=== PATIENT | female | born 1945 | race Caucasian/White ===

== ENCOUNTER 2017-12-16 18:07 | Outpatient (REF) | payer MEDICARE, SELFPAY ==
[2017-12-16 19:54] LABS: ALT 39 U/L (12-78); AST 25 U/L (15-37); Albumin 3.7 g/dL (3.4-5.0); Alkaline Phosphatase 82 U/L (46-116); Anion Gap 8.8 mmol/L (3-11); BUN 11 mg/dL (7-18); Bilirubin, Total 0.2 mg/dL (0.2-1.0); CO2 27.2 mmol/L (21.0-32.0); CREATININE 1.07 mg/dL (0.55-1.02); Calcium 9.3 mg/dL (8.5-10.1); Chloride 103 mmol/L (98-107); Estimated GFR 50.84 (mL/min/1.73m2); Glucose 88 mg/dL (70-100); Potassium 4.3 mmol/L (3.5-5.1); Sodium 139 mmol/L (136-145); TSH 0.45 uIU/mL (0.358-3.74); Total Protein 7.1 g/dL (6.4-8.2)
== END 2017-12-16 18:27 ==
LOC: NCHCN 18:07
PROVIDERS: PCP Nurse Practitioner; Visit Provider Nurse Practitioner
DX: E03.9 Hypothyroidism, unspecified (principal); R03.0 Elevated blood-pressure reading, without diagnosis of hypertension
CPT/HCPCS: 80053; 84443

== ENCOUNTER 2019-10-05 12:04 | Outpatient (REF) | payer MEDICARE, SELFPAY ==
[2019-10-05 16:30] LABS: ALT 36 U/L (14-59); AST 21 U/L (15-37); Albumin 3.9 g/dL (3.4-5.0); Alkaline Phosphatase 87 U/L (46-116); Anion Gap 10.6 mmol/L (3-11); BUN 15 mg/dL (7-18); Bilirubin, Total 0.3 mg/dL (0.2-1.0); CO2 26.4 mmol/L (21.0-32.0); CREATININE 1.11 mg/dL (0.55-1.02); Calcium 9.3 mg/dL (8.5-10.1); Calculated LDL 204 mg/dL (<100); Chloride 103 mmol/L (98-107); Cholesterol 310 mg/dL (<200); Estimated GFR 48.46 (mL/min/1.73m2); Glucose 101 mg/dL (74-106); HDL Cholesterol 37 mg/dL (40-60); Potassium 4.7 mmol/L (3.5-5.1); Sodium 140 mmol/L (136-145); TSH (W/Ref FT4) 1.79 uIU/mL (0.36-3.74); Total Protein 7.6 g/dL (6.4-8.2); Triglyceride 347 mg/dL (<150)
== END 2019-10-05 12:24 ==
LOC: NCHCN 12:04
PROVIDERS: PCP Nurse Practitioner; Visit Provider Nurse Practitioner
DX: I10 Essential (primary) hypertension (principal); E78.5 Hyperlipidemia, unspecified; E03.9 Hypothyroidism, unspecified
CPT/HCPCS: 80053; 80061; 84443

== ENCOUNTER 2020-07-20 16:51 | Outpatient (REF) | payer MEDICARE, SELFPAY ==
[2020-07-20 16:47] LABS: ALT 31 U/L (14-59); AST 19 U/L (15-37); Albumin 3.9 g/dL (3.4-5.0); Alkaline Phosphatase 107 U/L (46-116); Anion Gap 11.3 mmol/L (3-11); BUN 18 mg/dL (7-18); Bilirubin, Total 0.3 mg/dL (0.2-1.0); CO2 25.7 mmol/L (21.0-32.0); Calcium 9.4 mg/dL (8.5-10.1); Chloride 105 mmol/L (98-107); Cholesterol 269 mg/dL (<200); Glucose 93 mg/dL (74-106); Magnesium 2.2 mg/dL (1.8-2.4); Potassium 4.5 mmol/L (3.5-5.1); Sodium 142 mmol/L (136-145); TSH (W/Ref FT4) 6.22 uIU/mL (0.36-3.74); Total Protein 7.9 g/dL (6.4-8.2); Triglyceride 305 mg/dL (<150)
[2020-07-20 17:02] LABS: Calculated LDL 168 mg/dL (<100); HDL Cholesterol 40 mg/dL (40-60)
[2020-07-20 17:20] LABS: FREE T4 1.13 ng/dL (0.76-1.46)
== END 2020-07-20 16:52 | disposition home or self-care (01) ==
LOC: NCHCN 16:51
PROVIDERS: PCP Nurse Practitioner; Visit Provider Nurse Practitioner Family
DX: E78.5 Hyperlipidemia, unspecified (principal); I10 Essential (primary) hypertension; E03.9 Hypothyroidism, unspecified; Z79.899 Other long term (current) drug therapy
CPT/HCPCS: 80053; 80061; 82306; 83735; 84439; 84443

== ENCOUNTER 2020-08-31 20:22 | Outpatient (REF) | payer MEDICARE, SELFPAY ==
[2020-08-31 16:16] LABS: TSH (W/Ref FT4) 1.12 uIU/mL (0.36-3.74)
== END 2020-08-31 20:23 | disposition home or self-care (01) ==
LOC: NCHCN 20:22
PROVIDERS: PCP Nurse Practitioner; Visit Provider Nurse Practitioner Family
DX: E03.9 Hypothyroidism, unspecified (principal)
CPT/HCPCS: 84443

== ENCOUNTER 2021-07-17 15:10 | Outpatient (REF) | payer MEDICARE, SELFPAY ==
[2021-07-17 15:54] LABS: Anion Gap 12.1 mmol/L (3-11); BUN 18 mg/dL (7-18); CO2 23.9 mmol/L (21.0-32.0); Chloride 102 mmol/L (98-107); Estimated GFR 54.35 (mL/min/1.73m2); Glucose 137 mg/dL (74-106); Potassium 4.6 mmol/L (3.5-5.1); Sodium 138 mmol/L (136-145); TSH 1.37 uIU/mL (0.36-3.74)
== END 2021-07-17 15:11 | disposition home or self-care (01) ==
LOC: NCHCN 15:10
PROVIDERS: PCP Nurse Practitioner; Visit Provider Nurse Practitioner Family
DX: E03.9 Hypothyroidism, unspecified (principal)
CPT/HCPCS: 80048; 84443

== ENCOUNTER 2022-01-14 11:43 | Outpatient (REF) | payer MEDICARE, SELFPAY ==
[2022-01-14 16:29] LABS: TSH 0.65 uIU/mL (0.36-3.74)
== END 2022-01-14 11:44 | disposition home or self-care (01) ==
LOC: NCHCN 11:43
PROVIDERS: PCP Nurse Practitioner; Visit Provider Nurse Practitioner Family
DX: E03.9 Hypothyroidism, unspecified (principal)
CPT/HCPCS: 84443

== ENCOUNTER 2022-07-24 19:43 | Outpatient (REF) | payer MEDICARE, SELFPAY ==
[2022-07-24 21:39] LABS: Abs Immature Grans 0.05 10^3/uL (0.0-0.06); Absolute Basophil Count 0.06 10^3/uL (0.0-0.2); Absolute Eosinophil Count 0.11 10^3/uL (0.0-0.7); Absolute Lymphocyte Count 2.49 10^3/uL (1.2-3.4); Absolute Monocyte Count 0.77 10^3/uL (0.1-0.8); Absolute Neutrophil Count 3.97 10^3/uL (1.2-6.7); Basophils % 0.8; Eosinophils % 1.5; HCT 40.4 % (36.0-46.0); HGB 13.3 g/dL (11.2-15.7); Immature Grans % 0.7; Lymphocytes % 33.4; MCHC 32.9 % (32.0-36.0); MCV 94 fL (80-95); MPV 10.7 fL (8.0-11.0); Monocytes % 10.3; Neutrophils % 53.3; Platelet Count 355 10^3/uL (130-400); RBC 4.29 10^6/uL (3.93-5.22); RDW 12.5 % (11.7-14.6); RDW-SD 43.6 fL; WBC 7.45 10^3/uL (4.4-10.8)
[2022-07-24 22:42] LABS: ALT 34 U/L (14-59); AST 24 U/L (15-37); Albumin 4.1 g/dL (3.4-5.0); Alkaline Phosphatase 104 U/L (46-116); Anion Gap 10.8 mmol/L (3-11); BUN 18 mg/dL (7-18); Bilirubin, Total 0.3 mg/dL (0.2-1.0); CO2 25.2 mmol/L (21.0-32.0); CREATININE 1.1 mg/dL (0.55-1.02); Calcium 9.3 mg/dL (8.5-10.1); Chloride 101 mmol/L (98-107); Estimated GFR 52.73 (mL/min/1.73m2); Glucose 201 mg/dL (74-106); Potassium 4.5 mmol/L (3.5-5.1); Sodium 137 mmol/L (136-145); TSH (W/Ref FT4) 5.76 uIU/mL (0.36-3.74); Total Protein 8.3 g/dL (6.4-8.2); Vitamin B12 311 pg/mL (193-986)
[2022-07-24 22:59] LABS: FREE T4 1.13 ng/dL (0.76-1.46)
== END 2022-07-24 19:44 | disposition home or self-care (01) ==
LOC: NCHCN 19:43
PROVIDERS: PCP Nurse Practitioner; Visit Provider Nurse Practitioner Family
DX: E03.9 Hypothyroidism, unspecified (principal); E78.5 Hyperlipidemia, unspecified; I10 Essential (primary) hypertension; N18.31 Chronic kidney disease, stage 3a; R42 Dizziness and giddiness; Z79.899 Other long term (current) drug therapy
CPT/HCPCS: 80053; 82607; 84439; 84443; 85025

== ENCOUNTER 2022-09-11 12:58 | Outpatient (REF) | payer MEDICARE, SELFPAY ==
[2022-09-11 15:43] LABS: Hemoglobin A1C 6.4 % (<5.7)
== END 2022-09-11 12:59 | disposition home or self-care (01) ==
LOC: NCHCN 12:58
PROVIDERS: PCP Nurse Practitioner; Visit Provider Nurse Practitioner Family
DX: R73.9 Hyperglycemia, unspecified (principal)
CPT/HCPCS: 83036

== ENCOUNTER 2022-12-18 16:34 | Outpatient (REF) | payer MEDICARE, SELFPAY ==
[2022-12-18 16:43] LABS: HGB 13.2 g/dL (11.2-15.7); MCH 31.4 pg (27.0-33.0); MCV 95 fL (80-95); MPV 10.9 fL (8.0-11.0); Platelet Count 320 10^3/uL (130-400); RBC 4.21 10^6/uL (3.93-5.22); RDW 12.4 % (11.7-14.6); RDW-SD 43.2 fL; WBC 6.88 10^3/uL (4.4-10.8)
[2022-12-18 17:27] LABS: Iron 119 ug/dL (50-170); Total Iron Binding Capacity 358 ug/dL (250-450); Transferrin Sat 33 % (15-50)
[2022-12-18 17:32] LABS: TSH (W/Ref FT4) 2.51 uIU/mL (0.36-3.74); Vitamin B12 422 pg/mL (193-986)
[2022-12-18 18:38] LABS: Vitamin D 25 Total 47.6 ng/mL (30-100)
== END 2022-12-18 16:35 | disposition home or self-care (01) ==
LOC: NCHCN 16:34
PROVIDERS: PCP Nurse Practitioner; Visit Provider Nurse Practitioner Family
DX: E03.9 Hypothyroidism, unspecified (principal); R73.03 Prediabetes; R53.83 Other fatigue; F41.8 Other specified anxiety disorders; N18.31 Chronic kidney disease, stage 3a; I10 Essential (primary) hypertension; Z79.899 Other long term (current) drug therapy; R79.89 Other specified abnormal findings of blood chemistry
CPT/HCPCS: 82306; 85027; 82607; 83540; 83550; 84443

== ENCOUNTER 2024-03-05 10:38 | Outpatient (REF) | payer MEDICARE, SELFPAY ==
[2024-03-05 15:15] LABS: TSH (W/Ref FT4) 4.02 uIU/mL (0.36-3.74)
[2024-03-05 16:02] LABS: FREE T4 0.94 ng/dL (0.76-1.46)
== END 2024-03-05 10:39 | disposition home or self-care (01) ==
LOC: NCHCN 10:38
PROVIDERS: PCP Nurse Practitioner Family; Visit Provider Nurse Practitioner Family
DX: E03.9 Hypothyroidism, unspecified (principal)
CPT/HCPCS: 84439; 84443

== ENCOUNTER 2024-03-31 11:42 | Outpatient (REF) | payer MEDICARE, MEDICAID, SELFPAY ==
[2024-03-31 15:01] LABS: HCT 39.7 % (36.0-46.0); HGB 13.1 g/dL (11.2-15.7); MCH 31.6 pg (27.0-33.0); MCV 96 fL (80-95); Platelet Count 305 10^3/uL (130-400); RBC 4.14 10^6/uL (3.93-5.22); RDW 12.3 % (11.7-14.6); RDW-SD 43.1 fL; WBC 7.24 10^3/uL (4.4-10.8)
[2024-03-31 15:17] LABS: Hemoglobin A1C 6.3 % (<5.7)
[2024-03-31 15:23] LABS: ALT 23 U/L (14-59); AST 19 U/L (15-37); Albumin 4.1 g/dL (3.4-5.0); Alkaline Phosphatase 82 U/L (46-116); Anion Gap 8.5 mmol/L (3-11); BUN 19 mg/dL (7-18); Bilirubin, Total 0.35 mg/dL (0.2-1.0); CO2 27.5 mmol/L (21.0-32.0); CREATININE 1.1 mg/dL (0.55-1.02); Calcium 9.7 mg/dL (8.5-10.1); Chloride 102 mmol/L (98-107); Estimated GFR 52.08 (mL/min/1.73m2); Glucose 86 mg/dL (74-106); Potassium 4.7 mmol/L (3.5-5.1); Sodium 138 mmol/L (136-145)
== END 2024-03-31 11:43 | disposition home or self-care (01) ==
LOC: NCHCN 11:42
PROVIDERS: PCP Nurse Practitioner Family; Visit Provider Nurse Practitioner Family
DX: R73.03 Prediabetes (principal)
CPT/HCPCS: 80053; 85027; 83036

== ENCOUNTER 2024-07-23 11:11 | Outpatient (REF) | payer MEDICARE, MEDICAID, SELFPAY ==
[2024-07-23 15:34] LABS: FREE T4 1.04 ng/dL (0.76-1.46); TSH 0.74 uIU/mL (0.36-3.74)
== END 2024-07-23 11:12 | disposition home or self-care (01) ==
LOC: NCHCN 11:11
PROVIDERS: PCP Nurse Practitioner Family; Visit Provider Student in an Organized Health Care Education/Training Program
DX: E03.9 Hypothyroidism, unspecified (principal)
CPT/HCPCS: 84439; 84443

== ENCOUNTER 2024-09-16 10:03 | Emergency (ER) | payer MEDICARE, MEDICAID, SELFPAY ==
--- NOTE | 2024-09-16 10:15 | DI.RAD_ITS ---
Exam(s) XR KNEE LT 3V AP,LAT,MIRNA EXAM: XR KNEE LT 3V AP,LAT,MIRNA CLINICAL HISTORY: L knee/hip pain. TECHNIQUE: 2D digital imaging was performed of the left knee. Three images were obtained. AP, late ral and PA tunnel views were obtained. COMPARISON: No exams were available for comparison FINDINGS: BONES: No acute fracture is present. No bony destructive lesion is seen. JOINTS: There is marked narrowing of the medial femoral tibial joint. There osteophytes seen in all 3 joint compartments. No joint effusion is seen. No loose body. SOFT TISSUE: Normal. IMPRESSION: 1. No acute fracture or dislocation. 2. Marked osteoarthritis of the left knee. DATA REPOSITORY: RADIATION DOSE DELIVERED:
--- NOTE | 2024-09-16 10:15 | DI.RAD_ITS ---
Exam(s) XR HIP LT COMPLETE AP PELVIS EXAM: XR HIP LT COMPLETE AP PELVIS CLINICAL HISTORY: L knee/hip pain. TECHNIQUE: 2D digital imaging was performed of the left hip. Two views were obtained. AP pelvis an d lateral left hip views were obtained. COMPARISON: No exams were available for comparison FINDINGS: BONES: No acute fracture is present. No bony destructive lesion is seen. JOINTS: No dislocation present. The left hip is well maintained. The sacroiliac joints and symphysis pubis are unremarkable. SOFT TISSUE: Normal. IMPRESSION: No acute abnormality. DATA REPOSITORY: RADIATION DOSE DELIVERED:
[2024-09-16 10:17] VITALS: BP 181/94; PULSE 81; RESP 20; TEMP 36.7; O2SAT 94
--- NOTE | 2024-09-16 10:30 | ED.GENADUL_ITS ---
Discharge Plan Disposition Patient Disposition: Home Condition: Stable Discharge Details Clinical Impression: Strain of left quadriceps Primary Care Provider: COLLEEN LITTLE ED Provider: Asher Del Rio Home Meds and New Rx's Prescriptions: No Action levothyroxine [Euthyrox] 112 mcg tablet 112 mcg PO DAILY Discharge Instructions Instructions: Leg Muscle Strain ED Additional Instructions: You were seen in the emergency department for the pain in your left quadriceps muscle, there is palpable tension in the muscle body, you have known arthritis in the left knee which is quite severe on x-ray, the x-ray of your hip shows no severe arthritis, please take Tylenol and ibuprofen, apply topical Voltaren/diclofenac gel to the muscle pain, perform gentle stretching, some mas gilbert therapy visits may help with the pain, please follow-up with orthopedics for persistent pain lasting longer than 2 weeks. Please return to the emergency department for skin changes signs of neurovascular compromise/swelling distal to the knee, or any other emergent concerns. Referrals: [facility] [Provider Group] COLLEEN LITTLE, [employer] PROGRAM DIRECTOR [Primary Care Provider] - Discharge Data Discharge Date/Time-TO BE ENTERED AT DEPARTURE: 09/16/24 11:52 HPI General Date/Time Provider Initiated Documentation: 09/16/24 10:23 . HPI Narrative: 78 year-old female presents to ED today by POV/ambulating with a chief complaint of L hip pain with onset for the past 5 days. Quality described as pain in her L hip, going down her L leg in the setting of chronic arthritis- she localizes pain a few cm above the knee in the quad muscle, no radiation to trauma, falls, bruising, redness, warmth to touch- endorses some swelling. Severity is described as 8/10. Palliating factors include OTC medications without relief. Provoking factors include nothing specific. Patient not anticoagulated. Related Data Home Medications ?Medication ?Instructions ?Recorded ?Confirmed levothyroxine 112 mcg tablet 112 mcg PO DAILY 09/16/24 09/16/24 (Euthyrox) Allergies Allergy/AdvReac Type Severity Reaction Status Date / Time No Known Allergies Allergy Verified 09/16/24 10:21 General Stated Complaint: Orthopedic RIKKI: 4 Review of Systems All systems reviewed & are unremarkable except as noted in HPI and below Exam Narrative Exam Narrative: GENERAL APPEARANCE: Well-nourished, non-toxic, awake and alert, atraumatic, no acute distress. SKIN: Warm, pink, dry, intact, without rashes/lesions/ulcerations. HEAD: Normocephalic, atraumatic, normal hair distribution for gender/age. EYES: Normal conjunctiva, no exudates on lids/lashes. ENT: Nares patent, no circumoral cyanosis, no facial swelling NECK: Supple, trachea midline, painless cervical ROM. LUNGS/CHEST: Non-labored respirations, normal A/P diameter, symmetrical expansion, no chest wall deformity HEART (CV/PV): No peripheral edema, no JVD. ABDOMEN: Soft, non-distended, no guarding. MSK: Normal ROM, no swelling/deformity to bilateral UEs or LEs, moving all extremities without weakness, no cyanosis, spine midline without tenderness, normal curvature, L quadripceps mild tenderness without bruising, no erythema, NV intact distally NEURO: Mental Status AAOx4 - alert to person, place, time, events No facial droop, no forehead involvement. Motor: No focal weakness - strength 5/5 in bilateral UEs and LEs, proximal and distal, symmetric. Sensory: sensation intact to light touch globally. Gait normal: patient ambulated without ataxia into ED room. PSYCH: euthymic, cooperative, pleasant, appropriate speech Course Vital Signs Vital signs: Vital Signs Temperature 36.7 C 09/16/24 10:17 Pulse 81 09/16/24 10:17 Respiratory Rate 20 09/16/24 10:17 Blood Pressure 181/94 H 09/16/24 10:17 Pulse Oximetry 94 09/16/24 10:17 Temperature 36.7 C 09/16/24 10:17 Temperature Source Oral 09/16/24 10:17 Pulse 81 09/16/24 10:17 Respiratory Rate 20 09/16/24 10:17 Blood Pressure 181/94 H 09/16/24 10:17 Blood Pressure Position Sitting 09/16/24 10:17 Pulse Oximetry 94 09/16/24 10:17 Oxygen Delivery Method Room Air 09/16/24 10:17 Oxygen Flow Rate 0 09/16/24 10:17 Pain Level 8 09/16/24 10:17 Medical Decision Making This dictation utilizes [id number] dictation software and may contain unedited grammatical errors. 78 year-old female presents to ED today by POV/ambulating with a chief complaint of L hip pain with onset for the past 5 days. Quality described as pain in her L hip, going down her L leg in the setting of chronic arthritis- she localizes pain a few cm above the knee in the quad muscle, no radiation to trauma, falls, bruising, redness, warmth to touch- endorses some swelling. Severity is described as 8/10. Palliating factors include OTC medications without relief. Provoking factors include nothing specific. Patients' medical history: Hypertension, hypothyroidism, prediabetes, CKD stage III. Family and social history: Noncontributory. Pertinent exam findings / vital signs include mild tenderness in the quadriceps muscle of the left leg, no knee tenderness, no pain with passive range of motion, no tenderness in the hip joint, neurovascularly intact in the left lower extremity. Differential / pathologies of concern include strain/sprain, arthritis. Diagnostic studies of: - XR left hip, XR left knee -shows osteoarthritis in left knee, hip unremarkable. Interventions of: - Counseled on using Voltaren gel continuing Tylenol not Profen, follow-up with orthopedics if pain persists. ED Course/Assessment/Plan: 78-year-old female presents with left quadriceps pain for the past 5 days, there is no acute concern on physical exam for any significant pathology, no trauma and history, counseled on likely muscle strain and recommend she add [id number] diclofenac topical gel for pain relief, perform gentle stretching, follow-up with orthopedics for pain that persists. Findings not consistent with trauma, bony pathology, severe arthritis, infection. Disposition of strain of left quadriceps. Patient verbalized understanding of the plan and return to ED criteria and engaged in shared decision making. Medical Records Medical records reviewed: Yes I reviewed the patient's medical records. Imaging Data Radiologic Study: Attestation: I personally reviewed and interpreted this imaging study as follows: Imaging: X-Ray Radiologist's impression: EXAM: XR HIP LT COMPLETE AP PELVIS CLINICAL HISTORY: L knee/hip pain. TECHNIQUE: 2D digital imaging was performed of the left hip. Two views were obtained. AP pelvis and lateral left hip views were obtained. COMPARISON: No exams were available for comparison FINDINGS: BONES: No acute fracture is present. No bony destructive lesion is seen. JOINTS: No dislocation present. The left hip is well maintained. The sacroiliac joints and symphysis pubis are unremarkable. SOFT TISSUE: Normal. IMPRESSION: No acute abnormality. Radiologic Study #2: Attestation: I personally reviewed and interpreted this imaging study as follows: Imaging: X-Ray Radiologist's impression: EXAM: XR KNEE LT 3V AP,LAT,MIRNA CLINICAL HISTORY: L knee/hip pain. TECHNIQUE: 2D digital imaging was performed of the left knee. Three images were obtained. AP, lateral and PA tunnel views were obtained. COMPARISON: No exams were available for comparison FINDINGS: BONES: No acute fracture is present. No bony destructive lesion is seen. JOINTS: There is marked narrowing of the medial femoral tibial joint. There osteophytes seen in all 3 joint compartments. No joint effusion is seen. No loose body. SOFT TISSUE: Normal. IMPRESSION: 1. No acute fracture or dislocation. 2. Marked osteoarthritis of the left knee. Quality:SDOH Health Related Social Needs: No Data to Display PFSH All Active Problems (Updated 09/16/24 @ 11:18 by LEA Umana) Strain of left quadriceps (Acute) Social History Smoking/Tobacco Use Status: Never Smoking risk assessment performed?: Yes Alcohol Intake: never
== END 2024-09-16 11:52 | disposition home or self-care (01) ==
PROVIDERS: Emergency Provider Physician Assistant; PCP Nurse Practitioner Family
DX: S76.112A Strain of left quadriceps muscle, fascia and tendon, initial encounter (principal)
CPT/HCPCS: 99283 ×2; 73562; 73502

== ENCOUNTER 2024-10-19 15:41 | Outpatient (REF) | payer MEDICARE, MEDICAID, SELFPAY ==
[2024-10-19 17:13] LABS: Hemoglobin A1C 6.3 % (<5.7)
[2024-10-19 17:18] LABS: ALT 31 U/L (14-59); AST 20 U/L (15-37); Albumin 4.2 g/dL (3.4-5.0); Alkaline Phosphatase 82 U/L (46-116); Anion Gap 8.0 mmol/L (3-11); BUN 17 mg/dL (7-18); Bilirubin, Total 0.4 mg/dL (0.2-1.0); CO2 28.0 mmol/L (21.0-32.0); Calcium 9.4 mg/dL (8.5-10.1); Chloride 100 mmol/L (98-107); Estimated GFR 76.31 (mL/min/1.73m2); Glucose 93 mg/dL (74-106); Potassium 4.4 mmol/L (3.5-5.1); Sodium 136 mmol/L (136-145); TSH (W/Ref FT4) 2.22 uIU/mL (0.36-3.74); Total Protein 8.1 g/dL (6.4-8.2)
== END 2024-10-19 15:42 | disposition home or self-care (01) ==
LOC: NCHCN 15:41
PROVIDERS: PCP Nurse Practitioner Family; Visit Provider Nurse Practitioner Family
DX: R73.03 Prediabetes (principal); E03.9 Hypothyroidism, unspecified; N18.31 Chronic kidney disease, stage 3a
CPT/HCPCS: 80053; 83036; 84443